=== PATIENT | female | born 2000 | race Caucasian/White ===

== ENCOUNTER 2021-01-29 08:09 | Emergency (ER) | payer OTHER ==
[2021-01-29] MEDS ORDERED: PRENATAL FORMU1 EACH PO (09:36)
[2021-01-29] MEDS ORDERED: CYCLOBENZAPRINE10 MG PO (09:36)
== END 2021-01-29 10:07 | disposition home or self-care (01) ==
LOC: FER 08:09
DX: O9A.211 Injury, poisoning and certain other consequences of external causes complicating pregnancy, first trimester (principal); S46.911A Strain of unspecified muscle, fascia and tendon at shoulder and upper arm level, right arm, initial encounter; O99.891 Other specified diseases and conditions complicating pregnancy; M62.838 Other muscle spasm; Z3A.00 Weeks of gestation of pregnancy not specified

== ENCOUNTER 2021-02-17 09:14 | Emergency (ER) | payer OTHER ==
[~2021-02-17 09:14] MED LIST: CYCLOBENZAPRINE10 MG PO; PRENATAL FORMU1 EACH PO
[2021-02-17 10:00] LABS: ALBUMIN 4.2 g/dL (3.4-5.0); BILIRUBIN - TOTAL 0.7 mg/dL (0.2-1.0); BUN/CREAT RATIO (CALC) 23.2 RATIO; CREATININE 0.69 mg/dL (0.51-0.95); GLOBULIN (CALCULATION) 4.1 g/dL; POTASSIUM 3.5 mmol/L (3.5-5.1); TOTAL PROTEIN 8.3 g/dL (6.4-8.2)
[2021-02-17] MEDS ORDERED: PROMETHEGA12.5 MG/SU PR (10:58)
[2021-02-17] MEDS ORDERED: PHENERGAN12.5 M1 PO (10:58)
== END 2021-02-17 10:59 | disposition home or self-care (01) ==
LOC: FER 09:14
PROVIDERS: Emergency Medicine
DX: O21.0 Mild hyperemesis gravidarum (principal); Z3A.01 Less than 8 weeks gestation of pregnancy
CPT/HCPCS: 36415; 80053; J2405; J2550; J2765; J7030